=== PATIENT | male | born 2000 | race Caucasian/White ===

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

== ENCOUNTER 2019-02-11 10:47 | Emergency (ER) | payer BC ==
[2019-02-11 11:00] VITALS: BP 133/72
--- NOTE | 2019-02-11 11:11 | UC ---
Skin Complaint HPI - HPI Summary HPI Summary: facial rash x 1 week multiple lesions on the left side of fact, + itchy/ crusty no tenderness, no discharge - History of Current Complaint Chief Complaint: UCSkin Time Seen by Provider: 02/11/19 11:02 Stated Complaint: SKIN CONCERN - FACIAL Hx Obtained From: Patient Onset/Duration: Gradual Onset, Lasting Weeks - 1, Still Present Timing: Constant Onset Severity: Mild Current Severity: Moderate Pain Intensity: 0 Location: Discrete - left side of face Character: Pruritus, Redness, Raised Aggravating Factor(s): Touch Alleviating Factor(s): Nothing Associated Signs & Symptoms: Negative: Nausea, Vomiting, Numbness, Weakness, Shivering, Fever, Chills, Tenderness, Red Streaks - Allergy/Home Medications Allergies/Adverse Reactions: Allergies Allergy/AdvReac Type Severity Reaction Status Date / Time No Known Allergies Allergy Verified 02/11/19 10:55 PMH/Surg Hx/FS Hx/Imm Hx Previously Healthy: Yes - Surgical History Surgical History: None - Family History Known Family History: Positive: Cardiac Disease, Hypertension, Diabetes - Social History Alcohol Use: None Substance Use Type: None Smoking Status (MU): Former Smoker Type: Cigarettes Amount Used/How Often: NOT DAILY When Did the Patient Quit Smoking/Using Tobacco: ONE WEEK AGO Household Exposure Type: Cigarettes - Immunization History Vaccination Up to Date: Yes Review of Systems All Other Systems Reviewed And Are Negative: Yes Constitutional: Positive: Negative Skin: Positive: Rash Eyes: Positive: Negative ENT: Positive: Negative Respiratory: Positive: Negative Is Patient Immunocompromised?: No Physical Exam Triage Information Reviewed: Yes Appearance: Well-Appearing, No Pain Distress, Well-Nourished Vital Signs: Initial Vital Signs Temp 98.7 F 02/11/19 10:55 Pulse 71 02/11/19 10:55 Resp 15 02/11/19 10:55 BP 133/72 02/11/19 10:55 Pulse Ox 100 02/11/19 10:55 Vital Signs Reviewed: Yes Eye Exam: Normal Eyes: Positive: Conjunctiva Clear ENT Exam: Normal ENT: Positive: Normal ENT inspection, Hearing grossly normal Neck exam: Normal Respiratory Exam: Normal Respiratory: Positive: Chest non-tender, Lungs clear Cardiovascular: Positive: RRR, No Murmur, Pulses Normal Skin: Positive: Rashes - custy rash left side of face, yellow / browin in color , Course/Dx - Diagnoses Provider Diagnosis: Impetigo Discharge - Sign-Out/Discharge Documenting (check all that apply): Patient Departure All imaging exams completed and their final reports reviewed: No Studies - Discharge Plan Condition: Stable Disposition: HOME Prescriptions: Mupirocin 2% OINT* [Bactroban 2 % Oint*] 1 applic TOPICAL BID #1 tube Patient Education Materials: Impetigo (ED) Referrals: No Primary Care Phys,NOPCP [Primary Care Provider] - 7 Days - Billing Disposition and Condition Condition: STABLE Disposition: Home
== END 2019-02-11 11:14 | disposition home or self-care (01) ==
LOC: UCCORT 10:47
DX: L01.00 Impetigo, unspecified (principal); Z87.891 Personal history of nicotine dependence
CPT/HCPCS: 99212; G0463

== ENCOUNTER 2019-02-19 13:31 | Emergency (ER) | payer BC ==
[2019-02-19 14:14] VITALS: BP 109/67
--- NOTE | 2019-02-19 15:55 | ED ---
Skin Complaint - HPI Summary HPI Summary: pt presents for evaluation of worsening and spreading of his rash from his mouth to his chin, neck, left axilla and to his chest. pt denies any fever or chills, n/v/diarrhea. - History of Current Complaint Chief Complaint: UCSkin Stated Complaint: SKIN CONCERN Hx Obtained From: Patient Onset/Duration: Started Days Ago Timing: Constant Onset Severity: Moderate Current Severity: Moderate Pain Intensity: 0 Skin Location: Nose, Neck, Chest, Other: - axilla Aggravating Symptom(s): Nothing - Allergy/Home Medications Allergies/Adverse Reactions: Allergies Allergy/AdvReac Type Severity Reaction Status Date / Time No Known Allergies Allergy Verified 02/19/19 14:10 PMH/Surg Hx/FS Hx/Imm Hx Previously Healthy: Yes Infectious Disease History: No Infectious Disease History: Denies: Traveled Outside the [place] in Last 30 Days - Family History Known Family History: Positive: Cardiac Disease, Hypertension, Diabetes - Social History Alcohol Use: None Substance Use Type: Reports: None Smoking Status (MU): Light Every Day Tobacco Smoker Type: Cigarettes Amount Used/How Often: 1 pack weekly Review of Systems Constitutional: Negative Eyes: Negative ENT: Negative Cardiovascular: Negative Respiratory: Negative Gastrointestinal: Negative Genitourinary: Negative Musculoskeletal: Negative Positive: Rash Neurological: Negative Psychological: Normal All Other Systems Reviewed And Are Negative: No Physical Exam Triage Information Reviewed: Yes Vital Signs On Initial Exam: Initial Vitals Temp Pulse Resp BP Pulse Ox 98.6 F 67 15 109/67 100 02/19/19 14:10 02/19/19 14:10 02/19/19 14:10 02/19/19 14:10 02/19/19 14:10 Vital Signs Reviewed: Yes Appearance: Positive: Well-Appearing, No Pain Distress, Well-Nourished Skin: Positive: Warm, Dry, Other - pt has honey crusted lesion noted to left lower lip and skin. there are also plaques noted to neck. he does have hair growing on his neck. no abscesses, no induration, not tender to palpation. he also has 3 areas of redness approx 4mm in diameter. to his upper chest. he has 2 similar areas to his left axilla. Eyes: Positive: Normal, EOMI, YVETTE ENT: Positive: Hearing grossly normal Neck: Positive: Supple, Nontender Respiratory/Lung Sounds: Positive: Clear to Auscultation, Breath Sounds Present Cardiovascular: Positive: Normal, RRR Abdomen Description: Positive: Nontender, Soft Bowel Sounds: Positive: Present Musculoskeletal: Positive: Normal, Strength/ROM Intact Neurological: Positive: Normal, Sensory/Motor Intact, Alert, Oriented to Person Place, Time, CN Intact II-III Psychiatric: Positive: Normal AVPU Assessment: Alert Diagnostics - Vital Signs Vital Signs Temp Pulse Resp BP Pulse Ox 02/19/19 14:10 98.6 F 67 15 109/67 100 - Laboratory Lab Statement: Any lab studies that have been ordered have been reviewed, and results considered in the medical decision making process. Course/Dx - Course Course Of Treatment: pt was treated for impetigo.. he has now spread of this irritation. I am concerned that he may have mrsa. however, the lesions do not appear extremely erythematous. there are no obvious abscesses. will rx augmentin. he has no previous hx of skin infections or recurrent abscesses. pt encouraged to continue using the abx oinment. - Diagnoses Provider Diagnoses: Cellulitis, Impetigo Discharge - Sign-Out/Discharge Documenting (check all that apply): Patient Departure All imaging exams completed and their final reports reviewed: No Studies - Discharge Plan Condition: Stable Disposition: HOME Prescriptions: Amoxicillin/Clavulanate TAB* [Augmentin TAB 875*] 875 mg PO BID #20 tab Patient Education Materials: Impetigo (ED), Cellulitis (ED) Referrals: No Primary Care Phys,NOPCP [Primary Care Provider] - [facility] [Provider Group] Additional Instructions: continue to use the antibiotic ointment as previously instructed. take the oral antibiotic that i sent to your pharmacy. return if worse or any new symptoms. follow up with your primary care physician. - Billing Disposition and Condition Condition: STABLE Disposition: Home
== END 2019-02-19 16:01 | disposition home or self-care (01) ==
LOC: UCCORT 13:31
DX: L03.90 Cellulitis, unspecified (principal); L01.00 Impetigo, unspecified; F17.210 Nicotine dependence, cigarettes, uncomplicated
CPT/HCPCS: 99212; G0463

== ENCOUNTER 2019-04-28 14:35 | Emergency (ER) | payer BC ==
[2019-04-28 14:51] VITALS: BP 129/83
--- NOTE | 2019-04-28 15:01 | UC ---
Lower Extremity/Ankle HPI - HPI Summary HPI Summary: 18-year-old male comes in with a chief complaint of right great toe pain. Been having some pain there for the last couple of weeks it's gotten worse over the last couple of days. The great great toenail is ingrown on the lateral aspect and this morning it drained pus. Pain is worse with any kind of palpation or ambulation. Pain lasts with not moving it does not touch. No fevers or chills. - History of Current Complaint Chief Complaint: UCSkin Stated Complaint: RIGHT BIG TOE Time Seen by Provider: 04/28/19 14:46 Pain Intensity: 8 - Allergies/Home Medications Allergies/Adverse Reactions: Allergies Allergy/AdvReac Type Severity Reaction Status Date / Time No Known Allergies Allergy Verified 04/28/19 14:46 PMH/Surg Hx/FS Hx/Imm Hx Previously Healthy: Yes - Surgical History Surgical History: None - Family History Known Family History: Positive: Cardiac Disease, Hypertension, Diabetes - Social History Alcohol Use: None Substance Use Type: Marijuana Substance Use Comment - Amount & Last Used: Occasionally Smoking Status (MU): Light Every Day Tobacco Smoker Type: eCigarettes Amount Used/How Often: 1 pack weekly Length of Time of Smoking/Using Tobacco: Since Age 16 When Did the Patient Quit Smoking/Using Tobacco: ONE WEEK AGO Household Exposure Type: Cigarettes - Immunization History Vaccination Up to Date: Yes Review of Systems All Other Systems Reviewed And Are Negative: Yes Constitutional: Positive: Negative Skin: Positive: Other - SEE HPI Eyes: Positive: Negative ENT: Positive: Negative Respiratory: Positive: Negative Cardiovascular: Positive: Negative Gastrointestinal: Positive: Negative Motor: Positive: Negative Neurovascular: Positive: Negative Musculoskeletal: Positive: Negative Neurological: Positive: Negative Psychological: Positive: Negative Is Patient Immunocompromised?: No Physical Exam Triage Information Reviewed: Yes Appearance: Well-Appearing, No Pain Distress, Well-Nourished Vital Signs: Initial Vital Signs Temp 98.6 F 04/28/19 14:46 Pulse 95 04/28/19 14:46 Resp 16 04/28/19 14:46 BP 129/83 04/28/19 14:46 Pulse Ox 100 04/28/19 14:46 Vital Signs Reviewed: Yes Eye Exam: Normal Eyes: Positive: Conjunctiva Clear Neck: Positive: Supple Respiratory: Positive: No respiratory distress Musculoskeletal: Positive: Strength Intact, ROM Intact Neurological: Positive: Alert Psychological: Positive: Age Appropriate Behavior Skin: Positive: Other - Lateral aspect of the right great toenail is ingrown into the skin and there is erythema in the area. There is minimal fluctuance or drainage. No streaking. No loss of sensation normal capillary refill. The area is tender to palpation. Lower Extremity Course/Dx - Course Course Of Treatment: To start Keflex. Patient can soak it. Discussed how to cut his toenails to avoid as the future. Also recommended follow-up with podiatry if it's not improved. - Differential Dx/Diagnosis Provider Diagnosis: Paronychia of great toe, right, Ingrown nail of great toe of right foot Discharge - Sign-Out/Discharge Documenting (check all that apply): Patient Departure All imaging exams completed and their final reports reviewed: No Studies - Discharge Plan Condition: Stable Disposition: HOME Prescriptions: Cephalexin CAP* [Keflex CAP*] 500 mg PO QID #40 cap Patient Education Materials: Paronychia (ED), Ingrown Nail (ED) Referrals: Jacobo Dillon DPM [Doctor of Podiatric Medicine] - Additional Instructions: FOLLOW UP WITH YOUR DOCTOR IF NOT COMPLETELY IMPROVED. GET RECHECKED SOONER IF YOUR CONDITION WORSENS OR ANY QUESTIONS OR CONCERNS. - Billing Disposition and Condition Condition: STABLE Disposition: Home
== END 2019-04-28 15:09 | disposition home or self-care (01) ==
LOC: UCCORT 14:35
DX: L60.0 Ingrowing nail (principal); L03.031 Cellulitis of right toe; Z87.891 Personal history of nicotine dependence
CPT/HCPCS: 99212; G0463

== ENCOUNTER 2019-07-02 09:36 | Emergency (ER) | payer BC ==
[2019-07-02 10:09] VITALS: BP 116/67
--- NOTE | 2019-07-02 11:35 | UC ---
Cardiac HPI - HPI Summary HPI Summary: 19-year-old male comes in with a chief complaint of bilateral rib pain after falling and injuring himself 2 weeks ago. Patient slipped and fell across the board striking his lower chest. Initially patient reports knocked the wind out of him. Pain is continued worse on the right lower ribs but also in the left lower ribs. Patient is able to eat and drink. Without any increased pain. No blood in the urine or stools normal bowels normal urine. Pain is worse with laying on the areas and with any coughing or deep breaths. Does hurt to take a deep breath but is not feel short of breath at rest. No fevers or chills. - History of Current Complaint Chief Complaint: UCGeneralIllness Stated Complaint: RIB INJURY Time Seen by Provider: 07/02/19 10:33 Pain Intensity: 8 - Allergy/Home Medications Allergies/Adverse Reactions: Allergies Allergy/AdvReac Type Severity Reaction Status Date / Time No Known Allergies Allergy Verified 07/02/19 10:10 Home Medications: Home Medications Ibuprofen TAB* [Advil TAB*] 600 mg PO ONCE 07/02/19 [History Confirmed 07/02/19] PMH/Surg Hx/FS Hx/Imm Hx Previously Healthy: Yes - Surgical History Surgical History: None - Family History Known Family History: Positive: Cardiac Disease, Hypertension, Diabetes - Social History Alcohol Use: None Substance Use Type: None Substance Use Comment - Amount & Last Used: Occasionally Smoking Status (MU): Light Every Day Tobacco Smoker Type: eCigarettes Amount Used/How Often: 1 pack weekly Length of Time of Smoking/Using Tobacco: Since Age 16 When Did the Patient Quit Smoking/Using Tobacco: ONE WEEK AGO Household Exposure Type: Cigarettes - Immunization History Vaccination Up to Date: Yes Review of Systems All Other Systems Reviewed And Are Negative: Yes Constitutional: Positive: Negative Skin: Positive: Negative Eyes: Positive: Negative ENT: Positive: Negative Respiratory: Positive: Other - SEE HPI Cardiovascular: Positive: Chest Pain - SEE HPI Gastrointestinal: Positive: Negative Genitourinary: Positive: Negative. Negative: Hematuria Motor: Positive: Negative Neurovascular: Positive: Negative Musculoskeletal: Positive: Other: - SEE HPI Neurological: Positive: Negative Psychological: Positive: Negative Is Patient Immunocompromised?: No Physical Exam Triage Information Reviewed: Yes Appearance: Well-Appearing, Well-Nourished, Pain Distress - MILD WITH EXAM AND MOVEMENT Vital Signs: Initial Vital Signs Temp 98.6 F 07/02/19 10:03 Pulse 86 07/02/19 10:03 Resp 16 07/02/19 10:03 BP 116/67 07/02/19 10:03 Pulse Ox 100 07/02/19 10:03 Vital Signs Reviewed: Yes Eye Exam: Normal Eyes: Positive: Conjunctiva Clear Respiratory: Positive: Lungs clear, Normal breath sounds, No respiratory distress, Other: - Tender to palpation right lower anterior ribs and left lower anterior ribs. Cardiovascular: Positive: RRR Abdomen Description: Positive: Nontender, Soft - Abdomen is soft and nontender to palpation. He is tender on the ribs just above the abdomen. Bowel Sounds: Positive: Present Musculoskeletal: Positive: Strength Intact, ROM Intact Neurological: Positive: Alert, Muscle Tone Normal Psychological: Positive: Age Appropriate Behavior Skin Exam: Normal - Assessment/Plan Course Of Treatment: Budget Examiner: Linda Jordan S ([id number]) Chicken Tender: SONAM (YARONANCE) Report Date: 07/02/2019 10:08:00 Report Status: Final Start of Report Content Patient Name: NATHAN CORDERO Medical Record#: [id number] Ordering Physician: Jayjay Anderson MD Acct.#: [id number] : Age: 19 Sex: M Location: [facility] Exam Date: 07/02/19 1008 ADM Status: REG ER Order Information: RIBS BI W/PA CHEST MIN 4 VWS Accession Number: [id number] CPT: 10681 Indication: Rib injury. 3 views of the right ribs are reviewed. 3 views of left ribs are reviewed. There appears to be a fracture of the anterior tip of the right ninth rib. Subcutaneous air May BE noted adjacent to the rib. There also appears to be nondisplaced fracture of the left eighth rib anteriorly. No pneumothorax is noted. IMPRESSION: There is suggestion of a fracture of the right anterior ninth rib and left anterior eighth ribs. There may be some subcutaneous air adjacent to the right ninth rib fracture. < Electronically signed by Linda Jordan MD in OV> 07/02/19 1039 Dictated By: Linda Jordan MD Dictated Date/Time: 07/02/19 1037 Transcribed Date/Time: 07/02/19 1037 Copy to: CC:No Primary Care Phys,NOPCP ; Jayjay Anderson MD Imaging - [facility] Imaging - [facility] Imaging - [facility] [address] [address] ph [phone]) ph ([phone]) ph ([phone]) ===== End of Report Content I discussed the x-rays with the patient. Plan is ibuprofen on a regular basis. Hydrocodone as needed for more severe pain. I did discuss with the patient avoiding constipation to drink plenty of fluids. No evidence of any abdominal pathology today by history or exam. I did let the patient know that if he did develop abdominal pain or any other abdominal symptoms continued to get reevaluated. Also get reevaluated sooner if worse with shortness of breath or fevers. Also patient's at home with incentive spirometer to help avoid respiratory infection. Patient will follow-up primary care doctor or get reevaluated sooner if worse requests concerns. - Clinical Impression Provider Diagnosis: Rib fractures Discharge ED - Sign-Out/Discharge Documenting (check all that apply): Patient Departure All imaging exams completed and their final reports reviewed: Yes - Discharge Plan Condition: Stable Disposition: HOME Prescriptions: HYDROcodone/ACETAMIN 5-325 MG* [[place] 5-325 TAB*] 1 tab PO Q4H PRN #20 tab MDD 6 PRN Reason: Pain - Moderate Patient Education Materials: Rib Fracture (ED) Referrals: [facility] [facility] REFERRAL [Outside] [facility] [Provider Group] Jaron Mendez MD [Medical Doctor] - Additional Instructions: FOLLOW UP WITH YOUR DOCTOR IF NOT COMPLETELY IMPROVED. GET REEVALUATED SOONER IF NOT IMPROVING OR GO TO THE EMERGENCY DEPARTMENT IF YOUR CONDITION WORSENS; PAIN, FEVER, SHORTNESS OF BREATH, ABDOMINAL PAIN, YOU FEEL ILL OR ANY QUESTIONS OR CONCERNS USE THE INCENTIVE SPIROMETER EVERY 4 HOURS WHILE AWAKE TO HELP AVOID RESPIRATORY INFECTION - Billing Disposition and Condition Condition: STABLE Disposition: Home
== END 2019-07-02 11:49 | disposition home or self-care (01) ==
LOC: UCCORT 09:36
DX: S22.32XA Fracture of one rib, left side, initial encounter for closed fracture (principal); S22.31XA Fracture of one rib, right side, initial encounter for closed fracture; F17.290 Nicotine dependence, other tobacco product, uncomplicated; W01.0XXA Fall on same level from slipping, tripping and stumbling without subsequent striking against object, initial encounter; Y92.9 Unspecified place or not applicable
CPT/HCPCS: 71111; 99212; G0463

== ENCOUNTER 2019-07-15 11:54 | Emergency (ER) | payer BC ==
[2019-07-15 12:08] VITALS: BP 141/73
[2019-07-15] MEDS ORDERED: Ibuprofen TAB* 600 MG PO ONE (12:30)
--- NOTE | 2019-07-15 12:47 | UC ---
Cardiac HPI - HPI Summary HPI Summary: 19-year-old male comes in with chief complaint of bilateral lower anterior chest pain. In early June he fell onto a board and hurt his lower ribs bilaterally. On July 02, 2019 he was seen here and had rib x-rays which showed bilateral lower rib fractures. Patient's been treated with ibuprofen and hydrocodone. Both help some with the pain. Patient's out of the hydrocodone. Pain has not changed in the 4 weeks since the injury. No complaint of any shortness of breath. Has been able eat and drink normally. Reports normal bowels and bladder. No fevers or chills. Pain is worse with palpation of the lower ribs and twisting and turning bending and taking a deep breath. He has been using his incentive spirometer. Patient does not have a primary care physician. - History of Current Complaint Chief Complaint: UCUpperExtremity Stated Complaint: RIB FOLLOWUP Time Seen by Provider: 07/15/19 12:08 Pain Intensity: 8 - Allergy/Home Medications Allergies/Adverse Reactions: Allergies Allergy/AdvReac Type Severity Reaction Status Date / Time No Known Allergies Allergy Verified 07/15/19 12:08 PMH/Surg Hx/FS Hx/Imm Hx Previously Healthy: Yes - Surgical History Surgical History: None - Family History Known Family History: Positive: Cardiac Disease, Hypertension, Diabetes - Social History Alcohol Use: None Substance Use Type: None Substance Use Comment - Amount & Last Used: Occasionally Smoking Status (MU): Light Every Day Tobacco Smoker Type: eCigarettes Amount Used/How Often: 1 pack weekly Length of Time of Smoking/Using Tobacco: Since Age 16 When Did the Patient Quit Smoking/Using Tobacco: ONE WEEK AGO Household Exposure Type: Cigarettes - Immunization History Vaccination Up to Date: Yes Review of Systems All Other Systems Reviewed And Are Negative: Yes Constitutional: Positive: Negative Skin: Positive: Negative Eyes: Positive: Negative ENT: Positive: Negative Respiratory: Positive: Other - see hpi Cardiovascular: Positive: Chest Pain Gastrointestinal: Positive: Negative Motor: Positive: Negative Neurovascular: Positive: Negative Musculoskeletal: Positive: Negative Neurological: Positive: Negative Psychological: Positive: Negative Is Patient Immunocompromised?: No Physical Exam Triage Information Reviewed: Yes Appearance: Well-Appearing, Well-Nourished, Pain Distress - mild with palpation of lower ribs and rom Vital Signs: Initial Vital Signs Temp 99.2 F 07/15/19 12:04 Pulse 84 07/15/19 12:04 Resp 16 07/15/19 12:04 BP 141/73 07/15/19 12:04 Pulse Ox 99 07/15/19 12:04 Vital Signs Reviewed: Yes Eye Exam: Normal Eyes: Positive: Conjunctiva Clear Neck: Positive: Supple Respiratory: Positive: Lungs clear, Normal breath sounds, No respiratory distress, Other: - Tender to palpation lower ribs anteriorly bilaterally. The upper abdomen is nontender to palpation otherwise she get closer to the lower ribs there is tenderness. No ecchymosis. Cardiovascular: Positive: RRR Abdomen Description: Positive: Nontender, Soft Bowel Sounds: Positive: Present Musculoskeletal: Positive: Strength Intact, ROM Intact Neurological: Positive: Alert, Muscle Tone Normal Psychological: Positive: Age Appropriate Behavior Skin Exam: Normal - Assessment/Plan Course Of Treatment: Gis Coordinator: Farhan Birch Daniel ([id number]) Shoe Stamper: SONAM ( NUANCE) Report Date: 07/15/2019 12:31:00 Report Status: Final ====== Start of Report Content Patient Name: NATHAN CORDERO Medical Record#: [id number] Ordering Physician: Jayjay Anderson MD Acct.#: [id number] : Age: 19 Sex: M Location: [facility] Exam Date: 07/15/19 1231 ADM Status: REG ER Order Information: CHEST PA LAT 2 VWS Accession Number: [id number] CPT: 17097 HISTORY: b/l lower ant pain,+ b/l rib fxr hx COMPARISONS : None relevant available at the time of dictation. VIEWS: 4: Frontal dual- energy and lateral views of the chest. FINDINGS: CARDIOMEDIASTINAL SILHOUETTE: The cardiomediastinal silhouette is normal. JACOB: The jaocb are normal. PLEURA: The costophrenic angles are sharp. No pleural abnormalities are noted. LUNG PARENCHYMA: The lungs are clear. ABDOMEN: The upper abdomen is clear. There is no subphrenic gas. BONES AND SOFT TISSUES: No bone or soft tissue abnormalities are noted. OTHER: None. IMPRESSION: NO ACTIVE CARDIOPULMONARY DISEASE. <Electronically signed by Farhan Birch MD in OV> 07/15/191244 Dictated By: Farhan Birch MD Dictated Date/Time: 07/15/191243 Transcribed Date/Time: 07/15/191243 Copy to: CC:No Primary Care Phys,NOPCP ; Jayjay Anderson MD Imaging - [facility] Imaging - [facility] Imaging - [facility] [address] [address] ph ([phone]) ph ([phone]) ph ([phone]) End of Report Content I discussed the x-rays with the patient. Patient continues to have pain despite the injury being 4 weeks ago. Will continue with the ibuprofen and repeat the hydrocodone. Patient denies any fevers or chills or chest congestion or any abdominal pain.. He is not jaundiced. Normal urine normal bowels. We discussed the possibility of the liver or spleen injury. Here in clinic we have access to noncontrast CT and ultrasound. I discussed the appropriate technology with the patient being CT with IV contrast if were wishing to determine any splenic or liver injury especially 4 weeks out from the injury. Patient will follow-up with sports medicine and continue to use it' s incentive spirometer. He will go to the emergency department if he worsens. - Clinical Impression Provider Diagnosis: Rib pain on left side, Rib pain on right side Discharge ED - Sign-Out/Discharge Documenting (check all that apply): Patient Departure All imaging exams completed and their final reports reviewed: Yes - Discharge Plan Condition: Stable Disposition: HOME Prescriptions: HYDROcodone/ACETAMIN 5-325 MG* [Boling 5-325 TAB*] 1 tab PO Q4H PRN #20 tab MDD 6 PRN Reason: Pain - Moderate Patient Education Materials: Rib Fracture (ED) Referrals: [facility] [Provider Group] Additional Instructions: FOLLOW UP WITH SPORTS MEDICINE. GET REEVALUATED SOONER IF NOT IMPROVING OR GO TO THE EMERGENCY DEPARTMENT IF YOUR CONDITION WORSENS; PAIN, FEVER, SHORTNESS OF BREATH, YOU FEEL ILL OR ANY QUESTIONS OR CONCERNS. USE THE INCENTIVE SPIROMETER EVERY 4 HOURS WHILE AWAKE TO HELP AVOID RESPIRATORY INFECTION - Billing Disposition and Condition Condition: STABLE Disposition: Home
== END 2019-07-15 13:15 | disposition home or self-care (01) ==
LOC: UCCORT 11:54
DX: R07.81 Pleurodynia (principal); F17.290 Nicotine dependence, other tobacco product, uncomplicated
CPT/HCPCS: 71046; 99211; A9270-GY; G0463